=== PATIENT | male | born 1970 | race Caucasian/White ===

== ENCOUNTER 2017-04-02 12:45 | Day surgery (SDC) | payer OTHER ==
[2017-03-31 16:58] VITALS: BMI 31.1
[2017-04-02] MEDS ORDERED: PROPOFOL 20 ML ONE (13:18)
[2017-04-02 15:57] VITALS: PULSE 77; TEMP 98
[2017-04-02 16:01] VITALS: BP 118/74
--- NOTE | 2017-04-04 14:39 | PATH ---
Surgical Pathology Report Patient Name: BRENDAN JENKINS [facility]. Rec. #: [id number] /Age/Gender: 1970 (Age: 46) / M Account: [id number] Location: [facility]-ENDOSCOPY Taken: 04/02/2017 Received: 04/02/2017 Reported: 04/04/2017 Physicians: Georgina Almendarez M.D. Specimen(s) Received A: BX DUODENUM B: BX ANTRUM C: BX GE JUNCTION Clinical History Preoperative diagnosis: GERD Postoperative diagnosis: Rule out celiac disease, antral erosions Final Diagnosis A. DUODENUM, BIOPSY: DUODENAL MUCOSA WITH NO PATHOLOGIC CHANGES. NO HISTOLOGIC EVIDENCE OF GLUTEN SENSITIVE ENTEROPATHY (CELIAC SPRUE) IDENTIFIED. B. STOMACH, ANTRUM, BIOPSY: GASTRIC ANTRAL MUCOSA WITH NO PATHOLOGIC CHANGES, AND SMALL INTESTINAL MUCOSA WITH NO PATHOLOGIC CHANGES. IMMUNOSTAIN FOR H. PYLORI IS NEGATIVE. C. GE JUNCTION, BIOPSY: GASTRIC-TYPE MUCOSA WITH CHRONIC INFLAMMATION. NO INTESTINAL METAPLASIA IDENTIFIED (NO RBUI'S IDENTIFIED). Electronically Signed Chet Cornelius M.D. Gross Description A. Received in formalin, labeled "duodenum" is a michelle, irregular portion of soft tissue measuring 0.5 cm. in greatest dimension. The specimen is submitted in toto in one cassette. B. Received in formalin, labeled "antrum" are 2 michelle, irregular portions of soft tissue averaging 0.2 cm. in greatest dimension. The specimens are submitted in toto in one cassette. C. Received in formalin, labeled "GE junction" is a michelle, irregular portion of soft tissue measuring 0.4 cm. in greatest dimension. The specimen is submitted in toto in one cassette. 04/03/201704/03/2017
== END 2017-04-02 14:30 | disposition home or self-care (01) ==
LOC: FASU-ENDO 12:45
PROVIDERS: ATTEND Internal Medicine Gastroenterology
PROC: 0DB48ZX Excision of Esophagogastric Junction, Via Natural or Artificial Opening Endoscopic, Diagnostic (ICD-10-PCS; 2017-04-02)
PROC: 0DB98ZX Excision of Duodenum, Via Natural or Artificial Opening Endoscopic, Diagnostic (ICD-10-PCS; principal; 2017-04-02 13:38)
PROC: 0DB68ZX Excision of Stomach, Via Natural or Artificial Opening Endoscopic, Diagnostic (ICD-10-PCS; 2017-04-02 13:38)
DX: K29.60 Other gastritis without bleeding (principal)
CPT/HCPCS: 88305-TC; 88342-TC